=== PATIENT | female | born 2000 | race Hispanic/Latino ===

== ENCOUNTER 2024-09-03 00:21 | Emergency (ER) | payer SELFPAY ==
[2024-09-03 00:22] VITALS: BP 131/75; PULSE 98; RESP 18; TEMP 37.2; O2SAT 100
[2024-09-03 01:30] VITALS: BP 123/97; PULSE 93; RESP 14; O2SAT 100
--- NOTE | 2024-09-03 02:00 | ED_ITS ---
HPI - Ear Problem General Chief complaint: Ear Stated complaint: ear pain in both ears Time Seen by Provider: 09/03/24 01:30 History of Present Illness HPI Narrative: Patient is a 24-year-old female who presents to the emergency department this evening complaining of bilateral ear pain. Patient states that your pain started 2 days ago. She was prescribed amoxicillin and has had for the past 2 days. Patient is [place]-speaking only and translation services were used to obtain the history of present illness. She rates the pain a 5/10. Denies any additional symptoms or concerns. Related Data Allergies Allergy/AdvReac Type Severity Reaction Status Date / Time No Known Allergies Allergy Verified 09/03/24 01:57 Review of Systems Review of Systems: All systems are reviewed and are negative unless stated otherwise in the HPI. Exam Narrative: General: Alert, awake, afebrile, in no acute distress. HEENT: PERRL, no rhinorrhea, no post nasal drip, oropharynx clear, bilateral otitis externa, unable to visualize bilateral tympanic membranes, no tenderness palpation over the bilateral mastoids. Neck: Trachea midline, no JVD, no lymphadenopathy. Cardiovascular: Regular rate and rhythm, no murmurs, rubs or gallops, no peripheral edema. Respiratory: Clear to auscultation bilaterally, no tachypnea, no wheezing, no rhonchi, no rubs, no respiratory distress. Abdomen: Soft, nontender, nondistended, no rebound, no guarding, no peritoneal signs. Musculoskeletal: No joint swelling or deformity, normal muscle tone. Skin: No rashes or petechia, no signs of infection. Psychiatric: Alert and oriented, normal behavior and judgment for situation. Neurological: Alert and oriented to person, place, and time. Follows all commands. No focal deficits, speech is clear and fluent. Course Vital Signs Vital signs: Vital Signs Temperature 98.9 F 09/03/24 00:22 Pulse Rate 98 09/03/24 00:22 Respiratory Rate 18 09/03/24 00:22 Blood Pressure 131/75 09/03/24 00:22 Pulse Oximetry 100 09/03/24 00:22 Oxygen Delivery Room Air 09/03/24 00:22 Temperature 98.9 F 09/03/24 00:22 Pulse Rate 93 09/03/24 01:30 Respiratory Rate 14 09/03/24 01:30 Blood Pressure 123/97 H 09/03/24 01:30 Pulse Oximetry 100 09/03/24 01:30 Oxygen Delivery Room Air 09/03/24 00:22 Medical Decision Making MDM Narrative Medical decision making narrative: The patient was evaluated by myself in the emergency department. History is obtained from patient who is an independent historian and physical exam was performed. External medical records were reviewed at this time. Patient was informed that she will be switched from amoxicillin to Augmentin was administered her 1st dose of Augmentin in the emergency department. She was started on ofloxacin ear drops and administered her 1st dose in the emergency department. Patient was also administered an oral [place] and 15 mg of IM Toradol for pain. Instructed that she needs to follow up with ENT within the next 2-3 days and she will be provided with referral and patient is agreeable with this plan. Differential diagnosis considerations include otitis media versus otitis ex terna. Comorbidities impacting this visit include none. I have evaluated and discussed social determinants of health with the patient that could potentially impact subsequent diagnosis and treatment plans. On repeat assessment of the patient, reevaluation revealed that the patient is doing well and is in no acute distress. Patient symptoms have improved since she arrived to our emergency department. Repeat vital signs were all reviewed and noted to be stable. Differential diagnosis and treatment plan were discussed with the patient at bedside. Patient agrees with discussion and after shared medical decision making agrees with discharge. All questions were answered to the patient's satisfaction. Patient will follow up with ENT in 2-3 days. Patient was provided with strict return precautions and instructed to return to the emergency department if any new or worsening symptoms develop. The patient was discharged in stable condition. Vital Signs Vital Signs: Vital Signs Temperature 98.9 F 09/03/24 00:22 Pulse Rate 98 09/03/24 00:22 Respiratory Rate 18 09/03/24 00:22 Blood Pressure 131/75 09/03/24 00:22 Pulse Oximetry 100 09/03/24 00:22 Oxygen Delivery Room Air 09/03/24 00:22 Temperature 98.9 F 09/03/24 00:22 Pulse Rate 93 09/03/24 01:30 Respiratory Rate 14 09/03/24 01:30 Blood Pressure 123/97 H 09/03/24 01:30 Pulse Oximetry 100 09/03/24 01:30 Oxygen Delivery Room Air 09/03/24 00:22 Discharge Plan Discharge Clinical Impression: Otitis externa Patient Disposition: Home Condition: Improved Instructions: Antibiotic Form, Swimmer's Ear (AC), Earache (ED) Additional Instructions: Please take both the oral and ear drop antibiotics as instructed. Follow-up with the ENT physician you were provided with within the next 2-3 days. Return to the ED if any new or worsening symptoms develop. Use ibuprofen/Tylenol as needed for pain. Patient Language: Faro[place] Prescriptions: New ofloxacin 0.3 % drops 10 drp EACH EAR DAILY 10 Days Qty: 10 0RF amoxicillin-pot clavulanate 875-125 mg tablet 1 tablet PO Q12H 7 Days Qty: 14 0RF Follow-up/Referrals: Bossman Valdez MD [Physician] - 2 Days PHYSICIAN,INVOICE MACHINE OPERATOR [Primary Care Provider] - Time of Disposition: 01:57
[2024-09-03] MEDS: HYDROcodone/acetaminophen (*CRX) 5-325 MG TABLET 1 TAB PO (02:12)
[2024-09-03] MEDS: AMOXICILLIN/CLAVULANATE K 875-125 MG TAB 1 TABLET PO (02:13)
[2024-09-03] MEDS: KETOROLAC 15 MG/ML VIAL (*BKC) IM (02:13)
[2024-09-03] MEDS: OFLOXACIN 0.3% OPHTH SOLN 5 ML BTL 3 DROP EACH EAR (02:15)
[2024-09-03 02:20] VITALS: BP 127/71; PULSE 84; RESP 17; O2SAT 100
[2024-09-03] MEDS: Please add drug allergy info to patient profile. 1 EACH XX (02:20)
[2024-09-03 02:21] VITALS: BP 127/71; PULSE 84; RESP 17; O2SAT 100
== END 2024-09-03 02:23 | disposition home or self-care (01) ==
LOC: ANHED 02:10
PROVIDERS: Emergency Provider Emergency Medicine
DX: H60.93 Unspecified otitis externa, bilateral (principal)
CPT/HCPCS: 96372; 99283; A9270; J1885